=== PATIENT | female | born 1990 | race Caucasian/White ===

== ENCOUNTER 2017-01-29 19:36 | Emergency (ER) | payer OTHER ==
[~2017-01-29] VITALS: Ht 160 cm; Wt 84.4 kg
[2017-01-29 20:52] LABS: URINE BILIRUBIN NEGATIVE (Negative); URINE BLOOD TRACE (Negative); URINE COLOR YELLOW; URINE GLUCOSE-RANDOM* NEGATIVE (Negative); URINE KETONES NEGATIVE (Negative); URINE LEUKOCYTES-REFLEX 2+ (Negative); URINE PROTEIN (DIPSTICK) 1+ (Negative); URINE SPECIFIC GRAVITY >= 1.030 (1.003-1.035)
[2017-01-29 20:53] LABS: ABSOLUTE NEUTROPHILS 9.1 thou/uL (1.4-8.2); BASOPHILS 0.3 % (0.0-2.0); EOSINOPHILS 1.9 % (0.0-3.0); HEMATOCRIT 46.1 % (37.0-47.0); HEMOGLOBIN 15.3 gm/dL (12.0-15.0); LYMPHOCYTES 24.6 % (24.0-44.0); MCH 30.4 pg (26.0-34.0); MCHC 33.2 g/dL (28.0-37.0); MCV 91.7 fL (80.0-100.0); MONOCYTES 4.2 % (1.0-8.0); PLATELET COUNT 286 thou/uL (150-400); RBC 5.03 mil/uL (4.20-5.00); RDW 13.9 % (10.5-14.5); WBC 13.2 thou/uL (4.0-11.0)
[2017-01-29 20:56] LABS: SQUAMOUS >10 Many /LPF (0-3)
[2017-01-29 20:57] LABS: CALCIUM 8.8 mg/dL (8.5-10.1); CREATININE 0.7 mg/dL (0.6-1.0); POTASSIUM 4.1 mmol/L (3.5-5.1)
[2017-01-29 20:57] LABS: CASTS None Seen /LPF (None Seen); CRYSTALS None Seen /LPF (None Seen); URINE RBC 0-2 Rare /HPF (0-2)
[2017-01-29 20:58] LABS: MANUAL DIFF NO
[2017-01-29 21:03] LABS: ALBUMIN 3.4 g/dL (3.4-5.0); TOTAL BILIRUBIN 0.3 mg/dL (<0.1-1.0); TOTAL PROTEIN 7.9 g/dL (6.4-8.2)
[2017-01-29] MEDS ORDERED: CIPRO500 MG PO (22:21)
[2017-01-29] MEDS ORDERED: ZOFRAN ODT8 MG PO (22:21)
[2017-01-29] MEDS ORDERED: BENTYL 20 MG TA20 M1 PO (22:21)
[2017-01-29] MEDS ORDERED: FLAGYL500 MG PO (22:21)
[2017-01-29 22:46] VITALS: BP 132/76
== END 2017-01-29 22:48 | disposition home or self-care (01) ==
LOC: ER 19:36
PROVIDERS: Physician Assistant
DX: K52.9 Noninfective gastroenteritis and colitis, unspecified (principal); R11.2 Nausea with vomiting, unspecified; G47.30 Sleep apnea, unspecified; F17.210 Nicotine dependence, cigarettes, uncomplicated; F10.99 Alcohol use, unspecified with unspecified alcohol-induced disorder; Z90.49 Acquired absence of other specified parts of digestive tract; Z88.0 Allergy status to penicillin